=== PATIENT | male | born 1990 | race Asian ===

== ENCOUNTER 2024-12-01 12:25 | Emergency (ER) | payer OTHER ==
[~2024-12-01] VITALS: Ht 180.3 cm; Wt 123.6 kg
[2024-12-01 12:38] VITALS: BP 134/86; PULSE 100; RESP 20; TEMP 97.1; O2SAT 98
[2024-12-01] MEDS ORDERED: GABA-1181 PO (16:49)
[2024-12-01] MEDS ORDERED: PERCT PO (16:49)
[2024-12-01] MEDS ORDERED: IBUP-1554 PO (16:49)
[2024-12-01] MEDS: IBUPROFEN 600 MG TABLET PO ONE (16:51)
[2024-12-01] MEDS: OxyCODONE HCL/ACETAMINOPHEN 5-325 MG TABLET PO ONE (16:51)
== END 2024-12-01 17:14 | disposition home or self-care (01) ==
LOC: EMS 12:27
DX: S86.911A Strain of unspecified muscle(s) and tendon(s) at lower leg level, right leg, initial encounter (principal); Z79.899 Other long term (current) drug therapy; X50.1XXA Overexertion from prolonged static or awkward postures, initial encounter; Y93.89 Activity, other specified; Y92.008 Other place in unspecified non-institutional (private) residence as the place of occurrence of the external cause; Y99.8 Other external cause status
CPT/HCPCS: 29530; 99283